=== PATIENT | female | born 1990 | race Caucasian/White ===

== ENCOUNTER 2016-11-27 17:43 | Emergency (ER) | payer BC ==
--- NOTE | 2016-11-27 18:13 | ER PHYSICIAN DOCUMENTATION ---
Physician Documentation [facility] Name:Bre Malone Age:26 yrs Sex:Female :1990 Arrival Date:11/27/2016 Time:17:43 Bed3 Private MD: Mario Graves Disposition: 11/27/16 18:07 Discharged to Home/Self Care. Impression: Threatened . - Condition is Undetermined. - Discharge Instructions: , Threatened. - Medical Reconciliation form form. - Follow up: Emergency Department; When: Today. - Problem is new. - Symptoms are unchanged. HPI: 11/27 18:48 This 26 yrs old Female presents to ER via Private Vehicle with complaints of jm Vaginal Bleeding, + Preg <12wks. 18:48 The patient presents to the emergency department with vaginal bleeding, that is light. jm The estimated gestational age is 9 weeks. course: Ultrasound: the patient had an ultrasound, which was normal. Associated signs and symptoms: Pertinent negatives: abdominal pain, nausea. Historical: - Allergies: PENICILLINS; Amoxicillin; - Home Meds: 1. pre vitamins - PSHx: Tonsillectomy; - Tetanus: < 10 years. - Ebola Screening: : Patient denies exposure to infectious person. Patient denies travel to an Ebola-affected area in the 21 days before illness onset. . - Social history: Smoking status: Patient states was never smoker of tobacco. Patient/guardian denies using alcohol, marijuana. ROS: 18:48 Constitutional: Negative for fatigue, fever. 18:48 Abdomen/GI: Negative for abdominal pain. 18:48 : Positive for vaginal bleeding, Negative for urinary symptoms. Exam: 18:48 Constitutional: The patient appears alert, awake, comfortable. 18:48 Cardiovascular: Rate: normal, Rhythm: regular. 18:48 : Pelvic Exam: the exam is deferred, Bladder: is normal. Vital Signs: 17:49 BP 141 / 78; Pulse 86; Resp 20; Temp 98.9(O); Pulse Ox 97% on R/A; Weight 74.84 kg (R); arc Height 5 ft. 7 in. (170.18 cm) (R); Pain 0/10; 17:49 Body Mass Index 25.84 (74.84 kg, 170.18 cm) arc Procedures: 18:48 Ultrasound: Pelvic, obstetrical ultrasound performed. Indications include: vaginal jm bleeding, Views obtained: transabdominal uterus sagittal, transabdominal uterus transverse, Findings: cardiac activity with a heart rate of 150bpm. Impressions: Indeterminate intrauterine , Limited study because low gestational age. . MDM: 17:46 Patient medically screened. 18:48 Differential diagnosis: threatened Ab. Data reviewed: vital signs, nurses notes, and as jm a result, I will discharge patient. Counseling: I had a detailed discussion with the patient and/or guardian regarding: the historical points, exam findings, and any diagnostic results supporting the discharge/admit diagnosis, the need for outpatient follow up, at [facility] where they can get an US. . Dispensed Medications: No medications were administered Signatures: Chana Norris, Mario Pickens RN, MD MD jm
--- NOTE | 2016-11-27 18:13 | ER NURSING DOCUMENTATION ---
Nurse's Notes [facility] Name:Bre Malone Age:26 yrs Sex:Female :1990 Arrival Date:11/27/2016 Time:17:43 Bed3 Private MD: Diagnosis:Threatened Presentation: 11/27 17:45 Acuity: KENZIE 3 st 17:52 Presenting complaint: Patient states: pt is 9 weeks preg. about 10 min ago pt had some st bleeding. pt no longer bleeding. Pt denies any cramping. Transition of care: patient was not received from another setting of care. 17:52 Method Of Arrival: Private Vehicle st Triage Assessment: 17:56 General: Appears in no apparent distress, Behavior is agitated, anxious, cooperative, st pt lost a preg at 12 weeks in Jul.. Pain: Denies pain. Cardiovascular: No deficits noted. Respiratory: No deficits noted. GI: Abdomen is non- distended Abd is soft and non tender X 4 quads. : Reports vaginal bleeding that is bright red spotty. Historical: - Allergies: PENICILLINS; Amoxicillin; - Home Meds: 1. pre will vitamins - PSHx: Tonsillectomy; - Tetanus: < 10 years. - Ebola Screening: : Patient denies exposure to infectious person. Patient denies travel to an Ebola-affected area in the 21 days before illness onset. . - Social history: Smoking status: Patient states was never smoker of tobacco. Patient/guardian denies using alcohol, marijuana. Screenin:57 Infectious Disease Risk None. Abuse screen: Denies threats or abuse. Denies injuries st from another. pt states she feels safe at home. Nutritional screening: No deficits noted. Vital Signs: 17:49 BP 141 / 78; Pulse 86; Resp 20; Temp 98.9(O); Pulse Ox 97% on R/A; Weight 74.84 kg (R); arc Height 5 ft. 7 in. (170.18 cm) (R); Pain 0/10; 17:49 Body Mass Index 25.84 (74.84 kg, 170.18 cm) arc ED Course: 17:44 Patient arrived in ED. ama 17:45 Chana Norris RN is Primary Nurse. st 17:[address] 17:46 Mario Jimenez MD is Attending Physician. angela 17:58 Valuables Remains with patient Patient has correct armband on for positive st identification. Placed in gown. Bed in low position. Administered Medications: No medications were administered Outcome: 18:07 Discharge ordered by . angela 18:10 Discharged to to fallow up with [facility] for an unltrasound. st 18:10 Condition: stable 18:10 Instructed on discharge instructions, follow up and referral plans. 18:11 Patient [address] the ED[address] st Signatures: Chana Norris, KIM RN Mario Coronado MD MD jm Averdick, Andrew, Reg Reg amNiki Rowland, Reg Reg arc
== END 2016-11-27 18:12 | disposition home or self-care (01) ==
LOC: ER 17:43
DX: O20.0 Threatened abortion (principal)
CPT/HCPCS: 99281